=== PATIENT | female | born 1950 | race Caucasian/White ===

== ENCOUNTER 2017-09-28 02:58 | Observation (INO) | payer OTHER ==
[~2017-09-28] VITALS: Ht 160 cm; Wt 64.0 kg
[~2017-09-28 02:58] MED LIST: ALENDRONATE SOD70 M2 PO; AMLODIPINE BESYL5 M1 PO; ANORO ELLIPTA1 EACH INH; ANTIVERT 12.512.5 MG PO; ASPIRIN EC81 M1 PO; BAYER ASPIRIN R81 MG PO; BENAZEPRIL HCL40 MG PO; BENAZEPRIL40 MG PO; ESTRACE42.5 GM VG; EVISTA PO; FLONASE120 SPRAY/ NASB; FLOVENT HFA12 GM INH; GLUCOPHAGE850 M2 PO; GLUCOPHAGE850 MG PO; INDAPAMIDE1.25 M1 PO; INDAPAMIDE1.25 MG PO; K-DUR 20MEQ TA20 MEQ PO; MAGNESIUM400 M1 PO; MECLIZINE HCL12.5 M1 PO; NORVASC 5MG TAB5 MG PO; OMEGA-3100 MG PO; POTASSIUM CHLO20 ME2 PO; PRAVACHOL80 M1 PO; PRAVASTATIN40 MG PO; SYMBICORT 160/41 PUF INH; TUMS ULTRA400 M1 PO; VITAMIN B-122000 MC1 PO; VITAMIN D2000 UNIT PO
[2017-09-28 12:56] LABS: ABSOLUTE BASOPHIL COUNT 0.1 /CUMM (0.0-0.2); ABSOLUTE EOSINOPHIL COUNT 0.3 /CUMM (0.0-0.7); ABSOLUTE GRANULOCYTE CT 11.7 /CUMM (1.4-6.5); ABSOLUTE LYMPH COUNT 2.8 /CUMM (1.2-3.4); ABSOLUTE MONOCYTE COUNT 0.5 /CUMM (0.10-0.60); BASOPHIL % 0.5 % (0.0-2.0); HEMATOCRIT 29.7 % (37-47); MEAN CORPUSCULAR HGB 28.8 PG (27.0-31.0); MEAN CORPUSCULAR HGB CONC 33.4 G/DL (33.0-37.0); MEAN CORPUSCULAR VOLUME 86.3 FL (81.0-99.0); MEAN PLATELET VOLUME 7.1 FL (7.4-10.4); PLATELET COUNT 403 /CUMM (130-400); RBC DISTRIBUTION WIDTH 13.3 % (11.5-14.5); RED BLOOD CELL CT 3.44 /CUMM (4.20-5.40); WHITE BLOOD CELL COUNT 15.4 /CUMM (4.8-10.8)
--- NOTE | 2017-09-28 15:27 | Admission Core Measures ---
Acute Coronary Syndrome (CM) ACS Core Measures Acute Coronary Syndrome Diagnosis No Congestive Heart Failure (NEW) CHF Core Measures Congestive Heart Failure Diagnosis No Cerebrovascular Accident (NEW) CVA Core Measures CVA/TIA Diagnosis No Venous Thromboembolism VTE Core José (View Protocol) VTE Risk Factors Surgery No Mechanical VTE Prophylaxis d/t N/A MechProphylax Ordered No VTE Pharm Prophylaxis d/t Surgical Contraindication Problem List As ranked by this Provider includes Assessment & Plan 1. Cystocele HOME MEDS Home Med List Alendronate Sodium 70 MG TABLET 1 TAB PO QTHURS OSTEOPOROSIS (Reported) Amlodipine Besylate 5 MG TABLET 1 TAB PO QPM BP (Reported) Aspirin (Ecotrin*) 81 MG TABLET.DR 1 TAB PO Sunday HEART/BLOOD ( Reported) Benazepril HCl 40 MG TABLET 1 TAB PO DAILY BP (Reported) Calcium (Elemental-Fr Calcarb) (Tums Ultra) 400 MG CALCIUM (1,000 MG) TAB.CHEW 1 TAB PO DAILY SUPPLEMENT (Reported) Cholecalciferol (Vitamin D3) (Vitamin D) 2,000 UNIT CAPSULE 1 CAP PO QAM SUPPLEMENT (Reported) Cyanocobalamin (Vitamin B-12) (Vitamin B-12) 2,000 MCG TABLET 2 TAB PO QAM SUPPLEMENT (Reported) Estradiol (Estrace) 0.01 % CREAM.APPL 2 GM VG SATTUES HRT (Reported) Fluticasone Propionate (Flovent Hfa) 220 MCG AER.W.ADAP 2 PUFF INH QPM COPD ( Reported) Indapamide 1.25 MG TABLET 1 TAB PO DAILY BP (Reported) Magnesium Oxide (Magnesium) 400 MG CAPSULE 1 CAP PO BID SUPPLEMENT (Reported) Meclizine HCl 12.5 MG TABLET 1 TAB PO AD PRN VERTIGO (Reported) Metformin HCl (Glucophage) 850 MG TABLET 1 TAB PO BID DM (Reported) [place]adarko-3 Fatty Acids (Anadarko-3) 100 MG TAB.CHEW 1 TAB PO QAM SUPPLEMENT ( Reported) Potassium Chloride 20 MEQ TAB.ER.PRT 1 TAB PO Sunday SUPPLEMENT ( Reported) Pravastatin Sodium (Pravachol) 80 MG TABLET 1 TAB PO QPM CHOLESTEROL ( Reported) Umeclidinium Brm/Vilanterol Tr (Anoro Ellipta 62.5-25 Mcg INH) 62.5 MCG-25 MCG/ ACTUATION BLST.W.DEV 1 PUFF INH QAM COPD (Reported)
[2017-09-28 15:45] VITALS: BP 118/66
--- NOTE | 2017-09-28 16:01 | Operative Report ---
Operative/Inv Procedure Report Surgery Date: 09/28/17 Name of Procedure: cystocele and enterocele repair with mesh, cystoscopy with methylene blue Pre-Operative Diagnosis: cystocele and enterocele grade 4 Post-Operative Diagnosis: same Estimated Blood Loss: scant (800cc) Surgeon/Hemmer Lockstitch: Natali Champion MD Anesthesia: laryngeal mask airway Implants: vaginal mesh Complications: none Condition: stable Operative Indication: cystocele and enterocele grade 4 and unable to retain pessary. retention issues Operative/Procedure Note Note: This is a 67-year-old female with a history of pelvic organ prolapse. She specifically had cystocele and enterocele grade 4. Her vagina was completely everted she had a previous hysterectomy. She was the given a trial with the pessary but she was unable to retain it. However she did feel much more comfortable with the pessary in place. As a result she was even the risks benefits and alternatives and options of surgical repair. The utility and risks of vaginal mesh was reviewed as well as foregoing surgery. All questions were answered. She was consented in the holding area. Literature on vaginal mesh anterior vaginal repair and complications were given to the patient and the daughter. Patient was taken to the operating placed on the operating table in the supine position. Timeout was performed. IV antibiotics were infused and general anesthesia with LMA was started. Patient was then placed in the dorsal lithotomy position and prepped and draped in the standard sterile fashion after shaving the genitalia region. Giron catheter was placed in the bladder was drained. The Giron was placed in the patient's abdomen. [place] retractor was placed to allow for greater visualization. 1% lidocaine with epinephrine was infiltrated into the anterior vaginal wall to the apex of the vagina. Incision was made from the bladder neck down to the apex. Care was taken to not injure the bladder or the urethra or the enterocele. Upon dissection the enterocele was quite close to the cystocele and actually taking up much of the vaginal bulge bulk. This was carefully dissected free and the peritoneum was entered at one point. This was closed using running 3-0 Vicryl suture. Once the entire contents of the cystocele and enterocele were dissected free from the prolapsed epithelium the Restoril mesh was then placed after the thin U was used to place the 4 sutures at the bladder neck and into the sacrospinous ligament on the right and left side. Once the mesh was secured through the Prolene sutures it was seen to nicely reduce the prolapse. Methylene blue had been given prior to the start of the case. Cystoscopy was performed to evaluate for the ureteral patency after placing the sacrospinous ligament sutures. Excellent efflux was seen emanating from both the left and right ureteral orifice. Suprapubic pressure was applied to the patient's abdomen to check for possible occult stress urinary incontinence. No incontinence was appreciated with such maneuvers. Giron catheter was placed back into the bladder. The anterior vaginal wall was then closed with interrupted 2-0 Vicryl sutures. The sponge and needle count were correct at the end of the case. Patient was cleaned with Betadine solution. 2 inch vaginal packing impregnated with bacitracin was placed into the vaginal wall. Patient tolerated the procedure well. She was transferred to the recovery room in stable condition. Findings: no mesh in bladder. excellent ureteral efflux bilaterally Discharge Disposition: PACU
[2017-09-28 18:16] VITALS: BP 120/58
[2017-09-28 20:00] VITALS: BP 100/60
[2017-09-28 21:34] VITALS: BP 110/68; BP 110/70
[2017-09-28 22:24] VITALS: BP 100/60
[2017-09-29 01:47] VITALS: BP 102/60
[2017-09-29 05:53] VITALS: BP 112/62
--- NOTE | 2017-09-29 07:24 | Patient Discharge Instructions ---
Discharge Instructions General Discharge Information You were seen/treated for: CYSTOCELE/ENTEROCELE You had these procedures: REPAIR OF CYSTOCELE/ENTEROCELE Watch for these problems: INCREASED PAIN, CHEST PAIN, DIFFICULTY BREATHING Diet Continue normal diet: Yes Activity Full Activity/No Limits: No Activity Self Limited: Yes Pounds, do NOT lift more than: 5 Other activity limits: NO STRENUOUS ACTIVITY OR HEAVY LIFTING. AVOID SEXUAL ACTIVITY, BATHS, EXERCISE. Acute Coronary Syndrome Inclusion Criteria At DC or during hospital stay patient has or had the following: ACS DIAGNOSIS No Discharge Core Measures Meds if any: Prescribed or Continued at Discharge Meds if any: NOT Prescribed or Continued at Discharge Congestive Heart Failure Inclusion Criteria At DC or during hospital stay patient has or had the following: CHF DIAGNOSIS No Discharge Core Measures Meds if any: Prescribed or Continued at Discharge Meds if any: NOT Prescribed or Continued at Discharge Cerebrovascular accident Inclusion Criteria At DC or during hospital stay patient has or had the following: CVA/TIA Diagnosis No Discharge Core Measures Meds if any: Prescribed or Continued at Discharge Meds if any: NOT Prescribed or Continued at Discharge Venous thromboembolism Inclusion Criteria VTE Diagnosis No VTE Type NONE VTE Confirmed by (Test) NONE Discharge Core Measures - Per Current guidelines, there needs to be overlap - treatment for the first 5 days of Warfarin therapy. - If discharged on Warfarin prior to 5 days of - overlap therapy, the patient will need to be - assessed for post discharge needs including - *Post discharge parental anticoagulation - *Warfarin and/or parental anticoagulation education - *Follow up date to check INR post discharge At least 5 days overlap therapy as Inpatient No Meds if any: Prescribed or Continued at Discharge Note: Overlap Therapy is Warfarin and Anticoagulant Meds if any: NOT Prescribed or Continued at Discharge Note: Overlap Therapy is Warfarin and Anticoagulant Meds if any: NOT Prescribed or Continued at Discharge
[2017-09-29] MEDS ORDERED: TYLENOL325 M1 PO (07:26)
--- NOTE | 2017-09-29 07:52 | PN- Urology ---
See Addendum Subjective Subjective: Pt has no major complaints this morning. She admits to CROWE, but otherwise controlled. Tolerating clears. No nausea. Awaiting breakfast. Objective Vital Signs and I&Os Vital Signs Date Time Temp Pulse Resp B/P B/P Pulse O2 O2 Flow FiO2 Mean Ox Delivery Rate 09/29 0738 88 112/62 09/29 0553 98.0 88 20 112/62 98 Room Air 09/29 0147 98.0 81 20 102/60 95 Room Air 09/28 2224 97.8 81 19 100/60 96 Room Air 09/28 2134 81 110/70 09/28 2133 80 110/70 09/28 2110 Room Air 09/28 2000 98.2 81 19 100/60 96 Room Air 09/28 1816 97.6 90 18 120/58 95 Room Air 09/28 1545 98.3 82 28 118/66 95 Room Air Room Air Intake & Output 09/29 0800 09/29 0000 09/28 1600 09/28 0800 09/28 0000 09/27 1600 Intake Total 800 480 Output Total 1650 1150 Balance -850 -670 Intake, IV 800 300 Intake, Oral 180 Output, Urine 1650 1150 Patient 141 lb 141 lb Weight Physical Exam: Gen: Pt is awake and alert. NAD. Abd: Soft and nondistended. Levine in place. Assessment/Plan Assessment/Plan Pt is a 67 yo F who is now s/p repair of cystocele/enterocele. She is doing well this morning. Plan: -discharge home today with levine catheter. -tylenol as needed for pain. -f/u with Dr. Champion for removal of levine. Pt was informed to call to change her appointment. Core Measures Venous Thromboembolism VTE Risk Factors Surgery No Mechanical VTE Prophylaxis d/t N/A MechProphylax Ordered No VTE Pharm Prophylaxis d/t Surgical Contraindication
[2017-09-29 08:47] LABS: ABSOLUTE BASOPHIL COUNT 0 /CUMM (0.0-0.2); ABSOLUTE EOSINOPHIL COUNT 0.1 /CUMM (0.0-0.7); ABSOLUTE LYMPH COUNT 1.9 /CUMM (1.2-3.4); ABSOLUTE MONOCYTE COUNT 0.4 /CUMM (0.10-0.60); BASOPHIL % 0.4 % (0.0-2.0); EOSINOPHIL % 1.2 % (0-5); GRANULOCYTE % 70.3 % (42.2-75.2); HEMATOCRIT 28.4 % (37-47); MEAN CORPUSCULAR HGB 28.3 PG (27.0-31.0); MEAN CORPUSCULAR HGB CONC 32.6 G/DL (33.0-37.0); MEAN CORPUSCULAR VOLUME 86.8 FL (81.0-99.0); MEAN PLATELET VOLUME 7.4 FL (7.4-10.4); PLATELET COUNT 360 /CUMM (130-400); RBC DISTRIBUTION WIDTH 13.8 % (11.5-14.5); RED BLOOD CELL CT 3.27 /CUMM (4.20-5.40); WHITE BLOOD CELL COUNT 8.5 /CUMM (4.8-10.8)
[2017-09-29 11:00] VITALS: BP 112/60
[2017-09-29 12:46] VITALS: BP 90/52
[2017-09-29 14:53] VITALS: BP 104/54
== END 2017-09-29 16:12 ==
LOC: STS 02:58 → PACUH 14:19 → ENRESERV 14:48 → ENTRNSPT 15:14 → 2NB 15:40 → CMPTRNSPT 15:51 → ENPENDDIS 09-29 08:15 → 2NB 09-29 16:12
PROVIDERS: Nurse Practitioner; Urology
DX: N81.10 Cystocele, unspecified (principal); N81.5 Vaginal enterocele; M81.0 Age-related osteoporosis without current pathological fracture; J44.9 Chronic obstructive pulmonary disease, unspecified; I10 Essential (primary) hypertension; E11.9 Type 2 diabetes mellitus without complications; Z79.84 Long term (current) use of oral hypoglycemic drugs; R91.8 Other nonspecific abnormal finding of lung field; Z79.82 Long term (current) use of aspirin
CPT/HCPCS: 1255; 6040; 36592; 82436; 87086; 96374; G0378; J0131; J0690; J1630; J2405; J2550; J3101; J3490; Q9968

== ENCOUNTER → 2018-04-12 | Day surgery (SDC) | payer OTHER ==
[~2018-04-12] VITALS: Ht 160 cm; Wt 64.0 kg
[~2018-04-12] MED LIST changes: +TYLENOL325 M1 PO
--- NOTE | 2018-04-12 10:23 | Operative Report ---
Operative/Inv Procedure Report Surgery Date: 04/12/18 Name of Procedure: rectocele repair with Acell mesh Pre-Operative Diagnosis: rectocele grade 3-4 Post-Operative Diagnosis: same Estimated Blood Loss: less than 50ml Surgeon/Weld Inspector: Natali Champion MD Anesthesia: laryngeal mask airway Implants: vaginal mesh with Acell Complications: none Condition: stable Operative Indication: rectocele with need for pessary Operative/Procedure Note Note: 67-year-old female with to a rectocele that developed after her cytocele repair last year. She has a hx of constipation. She is bothered by the need to wear a pessary. She admits to needing to splint at times to pass BMs. She was not interested in using a pessary fdc. She was very interested in surgical repair. She was given the risks, benefits, and alternatives of the prolapse repair with mesh in the posterior wall. Literature was given and all questions were answered in the office as well as in the holding area with the daughter present in the holding area. Patient was taken to the operating room and placed on the operating table in the supine position. LMA was placed by anesthesia without difficulty. She was given propofol and ketamine in hopes of preventing severe N/V postop. IV antibiotics were infused. She was placed in the dorsolithotomy position and prepped and draped in a standard sterile fashion after shaving the genitalia. A Bradshaw retractor was placed with 6 stay hooks. Giron catheter was placed and 10 cc was placed into the balloon port. Attention was then turned to the rectocele. Bradshaw retractor was replaced to allow for excellent visualization of the vaginal vault. Allis clamps are placed at the posterior fourchette. 1% lidocaine with epinephrine was infiltrated into the posterior vaginal wall generously given the anesthesia she was receiving. Incision was made at the posterior fourchette in a lateral fashion. Metzenbaum scissors was then used to carefully dissect the rectocele from the posterior vaginal wall. The incision was carried all the way up to the vaginal apex. The posterior wall was then dissected free from the rectocele taking care not to injure the rectum. Acell mesh had been soaking for 20 minutes prior to this and this was then used for this repair. 2-0 Vicryl interrupted sutures were placed along the entire length of the rectocele within strong fascial tissue on the right and left side. These were tied down until acell mesh was placed between the sutures and secured proximally and distally. A second sheet of Acell was placed over the traditional repair before closing the posterior wall over it. The sutures were then sequentially tied down from proximal to distal orientation. This nicely reduced the rectocele. Area was grossly irrigated bacitracin irrigation and then the posterior wall was closed with interrupted 2- 0 Vicryl sutures. 2 inch vaginal packing impregnated with bacitracin ointment was placed in the vaginal vault. Sponge and needle count were correct at the end of the case. Patient tolerated the procedure well. Findings: grade 3-4 rectocele well reduced with no injury to th rectum or intestines Discharge Disposition: PACU
== END ==
LOC: STS 03:14
DX: N81.6 Rectocele (principal); N81.3 Complete uterovaginal prolapse; K59.00 Constipation, unspecified; I10 Essential (primary) hypertension; E11.9 Type 2 diabetes mellitus without complications; Z79.84 Long term (current) use of oral hypoglycemic drugs; J45.909 Unspecified asthma, uncomplicated; K21.9 Gastro-esophageal reflux disease without esophagitis
CPT/HCPCS: C1781; J0131; J0690; J2250